=== PATIENT | female | born 1945 | race Caucasian/White ===

== ENCOUNTER → 2016-10-19 | Outpatient (CLI) | payer MEDICARE ==
[~2016-10-19] MED LIST: CALCIUM + D3 E1 EACH PO; CENTRUM SILVER1 EACH PO; LEVOTHYROXINE0.1 M1 PO; METFORMIN 500M500 MG PO; MICRO-K 10 MEQ10 MEQ PO; ZOCOR40 MG PO
[2016-10-19 15:54] LABS: HEMOGLOBIN 12.6 g/dL (12.2-16.2); LYMPH # 2.5 K/mm3 (0.7-4.5); LYMPH % 28.8 % (10-50.0)
[2016-10-19 16:35] LABS: BUN 9 mg/dL (7-18); GFR (ESTIMATED) 98 ML/MIN (59-)
== END ==
LOC: LAB 15:33 → RT 15:33
PROVIDERS: Surgery
DX: K80.00 Calculus of gallbladder with acute cholecystitis without obstruction (principal); R14.0 Abdominal distension (gaseous); Z01.810 Encounter for preprocedural cardiovascular examination; Z01.811 Encounter for preprocedural respiratory examination; Z01.812 Encounter for preprocedural laboratory examination